=== PATIENT | male | born 1950 | race Caucasian/White ===

== ENCOUNTER 2024-12-04 04:58 | Emergency (ER) | payer OTHER ==
[~2024-12-04] VITALS: Ht 182.9 cm; Wt 86.2 kg
[2024-12-04] MEDS ORDERED: 0.9 % SODIUM CHLORIDE 1,000 ML IV STA (05:36)
[2024-12-04] MEDS ORDERED: KETOROLAC TROMETHAMINE 30 MG VIAL IV STA (05:37)
[2024-12-04] MEDS ORDERED: TAMSULOSIN HCL 0.4 MG CAP PO STA (05:37)
[2024-12-04] MEDS ORDERED: MORPHINE SULFATE 4 MG/ML VIAL IV STA ×2 (05:38→10:19)
[2024-12-04] MEDS ORDERED: TAMSULOSIN HCL 0.4 MG CAP PO ONE (05:39)
[2024-12-04] MEDS ORDERED: KETOROLAC TROMETHAMINE 30 MG VIAL ONE (05:40)
[2024-12-04 07:12] LABS: ALBUMIN 3.6 gm/dL (3.4-5.0); BILIRUBIN TOTAL 1.04 mg/dL (0.3-1.2); CALCIUM 8.9 mg/dL (8.5-10.1); CREATININE SERUM 1.08 mg/dL (0.70-1.30); GFR 67.02; GLOBULINA 3.9 G/DL (2.4-3.5); POTASSIUM 3.57 mEq/L (3.5-5.1); TOTAL PROTEIN 7.5 gm/dL (6.4-8.2)
[2024-12-04 07:20] LABS: HEMOGLOBIN 15.4 g/dL (13-16.00); MEAN CELL VOLUME 87.8 fL (80.0-100.00); MEAN CORPUSCULAR HEMOGLOBIN 32.1 pg (27.00-32.0); MEAN CORPUSCULAR HGB CONC 36.6 g/dl (32.0-36.0); PLATELET COUNT 164 K/uL (150-450); RED BLOOD COUNT 4.78 M/uL (4.00-6.00); RED CELL DISTRIBUTION WIDTH 13.7 % (11.5-14.5)
[2024-12-04 09:41] LABS: PH,URINE 6.5 (5.0-8.0); URINE APPEARANCE Cloudy; URINE BILIRRUBIN Negative (NEGATIVE); URINE BLOOD NHT; URINE COLOR Yellow; URINE GLUCOSE Negative (NEGATIVE); URINE KETONE Trace (NEGATIVE); URINE LEUKOCYTE Moderate; URINE NITRATE Negative; URINE PROTEIN Trace (NEGATIVE); URINE UROBILINOGEN 0.2 E.U./dl
[2024-12-04 09:43] LABS: URINE EPITHELIAL CELLS 2.5 uL (0.0-38.8); URINE RBC 84.4 uL (0.0-20.8); URINE WBC 615.4 uL (0.0-23.2)
[2024-12-04 10:41] LABS: URINE BACTERIA > 9821.5 uL (0.0-1933); URINE CRYSTALS MODERATE /HPF
[2024-12-04] MEDS ORDERED: CIPROFLOXACIN IN 5 % DEXTROSE 400 MG/200 ML PIGGYBAG IV STA (10:43)
[2024-12-04] MEDS ORDERED: CIPROFLOXACIN IN 5 % DEXTROSE 400 MG/200 ML PIGGYBAG IV ONE (10:58)
== END 2024-12-04 14:04 | disposition home or self-care (01) ==
LOC: ER 06:09
DX: N20.0 Calculus of kidney (principal); N21.0 Calculus in bladder; N39.0 Urinary tract infection, site not specified; Z88.0 Allergy status to penicillin